=== PATIENT | female | born 1940 | race Caucasian/White ===

== ENCOUNTER → 2018-05-17 11:44 | Outpatient (CLI) | payer MEDICARE ==
[~2018-05-17] VITALS: Ht 170.2 cm; Wt 88.6 kg
--- NOTE | ~2018-05-17 | HEMODYNAMI ---
PATIENT:GEOVANNA CARRINGTON MEDICAL RECORD: [id number] : 36 LOCATION:[facility] ADMISSION DATE: 05/17/18 Generatedon:05/17/201815:04 Patient name: GEOVANNA CARRINGTON Patient #: [id number] SSN: : 1940 Date of study: 05/17/2018 Page: Of Hemodynamic Procedure Report Patient Data Patient Demographics Procedure consent was obtained First Name: GEOVANNA Gender: Female Last Name: ZEB : 1940 Middle Initial: L Age: 78 year(s) Patient #: [id number] Race: Unknown Additional ID: [id number] Contact details Address: [address] [place] [address] State: [place] City: [facility] Zip code: [address] Past Medical History Allergies Allergen Reaction Date Comments Reported Other allergy 05/17/2018 DILUADID, LIPITOR, NEXIUM Admission Admission Data Admission Date: 05/17/2018 Admission Time: 11:44 Height (in.): 66 BSA: 2.01 (m2) Height (cm.): 167.64 BMI: 32.76 (kg/m2) Weight (lbs.): 203 Weight (kg.): 92.08 Lab Results Lab Result Date: 05/17/2018 Lab Result Time: 0:00 Biochemistry Name Units Result Min Max BUN mg/dl 20 --(----)*- 7 18 Creatinine mg/dl 1 --(--*-)-- 0.6 1.3 CBC Name Units Result Min Max Hemoglobin g/dl 11.1 *-(----)-- 13.5 17.5 Procedure Procedure Types Cath Procedure Diagnostic Procedure [facility] w/Coronaries Sedation Charges Moderate Sedation up to 15 minutes PCI Procedure Coronary Stent Coronary Stent Initial Procedure Description Procedure Date Procedure Date: 05/17/2018 Procedure Start Time: 14:34 Procedure End Time: 15:03 Procedure Staff Name Function Ghulam Huitron MD Performing Physician Joon Ryan RN Clinical Psychologist Private Practice Mariaa Carrera RT Monitor Andrea Stewart RT Scrub Sheyla Smith RN Nurse Ru Martinez RN Nurse Procedure Data Cath Procedure Fluoroscopy Diagnostic fluoroscopy Total fluoroscopy Time: 7.8 time: 7.8 min min Diagnostic fluoroscopy Total fluoroscopy dose: dose: 1062 mGy 1062 mGy Contrast Material Contrast Material Type Amount (ml) Isovue 300 148 Entry Location Entry Primary Successful Side Size Upsize Upsize Entry Closure Richardson ccessful Closure Location (Fr) 1 (Fr) 2 (Fr) Remarks Device Remarks Femoral Right 6 Fr Mechanical artery Short Compression Estimated blood loss: 10 ml Diagnostic catheters Device Type Used For End Catheter Placement DIAGNOSTIC [place] 110cm 5 Procedure Fr catheter ([id number]) DIAGNOSTIC AR MOD 5Fr Procedure Catheter ([id number]) DIAGNOSTIC AR2 MOD 5 Fr Procedure catheter ([id number]) Procedure Complications No complications Procedure Medications Medication Administration Route Dosage Oxygen etCO2 Nasal cannula 2 l/min Lidocaine 2% added to field 20 Heparin Flush Bag added to field 2 bags (1000units/500ml NS) 0.9% NaCl I.V. 100 ml/hr Radial Cocktail added to field 1 syringe (Verapomil 2mg/Nitro 400mcg/Heparin 1500units) Versed I.V. 2 mg Fentanyl I.V. 100 mcg Versed I.V. 1 mg Versed I.V. 1 mg Nitroglycerin IC/IA I.C. 100 mcg Heparin Bolus I.V. 9000 units Plavix P.O. 600 mg Hemodynamics Rest BSA: 2.01 (m2) HGB: 11.1 (g/dl) O2 Consumption: Estimated: 174.84 (ml/min) O2 Co nsumption indexed: Estimated:86.99 (ml/min/m) Heart Rate: 62 (bpm) Pressure Samples Time Site Value (mmHg) Purpose Heart Use Rate(bpm) 14:36 LV 125/1,11 Snapshot 66 14:37 AO 118/54(80) Pullback 69 14:37 LV 120/19,7 Pullback 69 Gradients Valve Time Site 1 Site 2 Mean SEP/DFP Peak To Heart Use (mmHg) (sec/min) Peak Rate (mmHg) (bpm) Aortic 14:37 LV AO 5 12 2 69 120/19,7 118/54(80) Calculations Valve P-P Mean Valve Index Valve Source Name Gradient Area Flow (cm2) Aortic 2 5 2 5 Snapshots Pre Cath Intra NCS Post Cath Vital Signs Time Heart Resp SPO2 etCO2 NIBP (mmHg) Rhythm Pain Sedation Rate (ipm) (%) (mmHg) Status Level (bpm) 14:18:40 61 21 97 39 163/75(127) NSR 0 (11) 10(A) , No pain 14:23:14 62 17 100 35.6 161/72(140) NSR 0 (11) 10(A) , No pain 14:27:45 60 11 99 35.6 142/66(110) NSR 0 (11) 10(A) , No pain 14:32:03 58 16 97 27.3 128/58(104) NSR 0 (11) 9(A) , No pain 14:36:25 65 12 98 37.1 123/59(86) NSR 0 (11) 9(A) , No pain 14:41:37 69 18 98 38.6 129/68(101) NSR 0 (11) 9(A) , No pain 14:45:58 69 15 98 37.1 142/68(117) NSR 0 (11) 10(A) , No pain 14:50:04 64 14 98 37.1 135/67(112) NSR 0 (11) 9(A) , No pain 14:54:31 69 13 99 39.4 139/66(111) NSR 0 (11) 10(A) , No pain 14:58:57 72 15 99 37.9 146/69(114) NSR 0 (11) 10(A) , No pain 15:03:23 67 13 99 37.9 158/77(132) NSR 0 (11) 10(A) , No pain Medications Time Medication Route Dose Verified Delivered Reason Not es Effectiveness by by 14:21:30 Oxygen etCO2 2 l/min Ghulam Sheyla used for Nasal Tomy Smith procedure cannula RN 14:21:41 Lidocaine 2% added 20ml Ghulam Ghulam for local to vial Tomy Huitron MD anesthetic field 14:21:47 Heparin Flush added 2 bags Ghulam Ghulam used for Bag to Tomy Huitron MD procedure (1000units/500ml field NS) 14:21:58 0.9% NaCl I.V. 100 Ghulam Sheyla Per physician ml/hr Tomy Smith RN 14:29:16 Versed I.V. 2 mg Ghulam Sheyla for sedation Tomy Smith RN 14:29:23 Fentanyl I.V. 100 mcg Ghulam Sheyla for sedation Tomy Smith RN 14:34:53 Radial Cocktail added 1 Ghulam Ghulam used for (Verapomil to syringe Tomy Huitron MD procedure 2mg/Nitro field 400mcg/Heparin 1500units) 14:35:09 Versed I.V. 1 mg Ghulam Sheyla for sedation Tomy Smith RN 14:46:28 Versed I.V. 1 mg Ghulam Sheyla for sedation Tomy Smith RN 14:50:00 Nitroglycerin I.C. 100 mcg Ghulam Ghulam for IC/IA Tomy molina 14:50:12 Heparin Bolus I.V. 9000 Ghulam Sheyla for rupert ified units Tomy Smith anticoagulation with dr KORIN huitron. 14:59:39 Plavix P.O. 600 mg Ghulam Sheyla for Tomy Smith antiplatelet RN therapy Procedure Log Time Note 14:05:08 Joon Ryan RN sent for patient. Start room use. 14:10:19 Time tracking: Regular hours (M-F 7:00 - 5:00) 14:10:22 Plan of Care:Hemodynamics will remain stable., Cardiac rhythm will remain stable., Comfort level will be maintained., Respiratory function will remain adequate., Patient/ family verbilizes understanding of procedure., Procedure tolerated without complication., Recovers from procedure without complications.. 14:10:24 Signed procedure consent form obtained from patient. 14:10:30 H&P Date Dictated: 05/10/2018 Within 30 days and on chart., H&P Addendum completed by physician on day of procedure. (MUST COMPLETE FOR ALL OUTPATIENTS). 14:10:39 Patient Height : 66 inches 14:10:43 Patient Weight : 203 lbs 14:12:10 Patient received from Pre/Post Procedure Room to CCL 1 Alert and oriented. Tansferred to table in Supine position. 14:12:12 Warm blankets applied, and leah hugger turned on for patient comfort. 14:12:12 Correct patient and procedure confirmed by team. 14:12:13 ECG and BP/O2 sat monitors applied to patient. 14:17:17 Vital chart was started 14:21:30 Oxygen 2 l/min etCO2 Nasal cannula was administered by Sheyla Smith RN; used for procedure; 14::41 Lidocaine 2% 20ml vial added to field was administered by Ghulam Huitron MD; for local anesthetic; 14:21:47 Heparin Flush Bag (1000units/500ml NS) 2 bags added to field was administered by Ghulam Huitron MD; used for procedure; 14::58 0.9% NaCl 100 ml/hr I.V. was administered by Sheyla Smith RN; Per physician; 14:22:41 Baseline sample Acquired. 14:22:48 Rhythm: sinus rhythm 14:22:49 Full Disclosure recording started 14:22:50 Pre-procedure instructions explained to patient. 14:22:50 Pre-op teaching completed and patient verbalized understanding. 14:22:52 Family in patients room. 14:22:55 Patient NPO since Midnight. 14:23:14 Patient allergic to Other allergyDILUADID, LIPITOR, NEXIUM 14:23:16 Is patient on blood thinner?Yes 14:23:42 PRADAXA HELD SINCE . 14:23:47 Patient diabetic? No. 14:23:52 Patient not . Patient is over age 55. 14:23:56 Previous problem with sedation/anesthesia? No ? 14:23:58 Snore? Yes 14:23:59 Sleep apnea? No 14:24:00 Deviated septum? No 14:24:01 Opens mouth fully? Yes 14:24:02 Sticks out tongue? Yes 14:24:04 Airway obstruction? No ? 14:24:09 Dentures? Yes TIGHT 14:24:22 Modified Stephon's test Ulnar < 7 seconds 14:24:24 Patient pain scale 0/10 ?. 14:24:28 IV patent on arrival in left hand with 0.9% NaCl at [facility]. 14:26:19 Lab Result : Creatinine 1 mg/dl 14::19 Lab Result : BUN 20 mg/dl 14:26:19 Lab Result : Hemoglobin 11.1 g/dl 14:26:23 Lab results completed and on chart. 14:26:26 Right Radial & Right Groin area was prepped with chlora-prep and draped in sterile fashion 14:26:27 Alarms reviewed by Сергей. N. 14:26:28 Sharps counted by scrub and verified by R.N. 14:26:31 Use device set Radial Dx or PCI 14:26:32 ACIST Syringe (38958) opened to sterile field. 14:26:33 Bag Decanter (2002S) opened to sterile field. 14:26:35 ACIST Hand Control (37065) opened to sterile field. 14:26:35 ACIST Manifold (48082) opened to sterile field. 14:26:36 Tegaderm 4 x 4 (1626W) opened to sterile field. 14:26:37 Medline Cath Pack ([id number]) opened to sterile field. 14:26:37 DIAGNOSTIC WIRE .035 260cm J wire (717375) opened to sterile field. 14:26:38 MBrace Wrist Support ([id number]) opened to sterile field. 14:26:40 SHEATH 6Fr Prelude Radial ([id number]) opened to sterile field. 14:28:45 --------ALL STOP TIME OUT------ 14:28:45 Final Timeout: patient, procedure, and site verified with staff and physician. All members of the team are in agreement. 14:28:47 Right Radial & Right Groin site verified by team. 14:28:50 Physical assessment completed. ASA score P 2 - A patient with mild systemic disease as per Ghulam Huitron MD. 14::53 Sedation plan: IV Moderate Sedation Medication:Versed, Fentanyl 14:29:16 Versed 2 mg I.V. was administered by Sheyla Smith RN; for sedation; 14::23 Fentanyl 100 mcg I.V. was administered by Sheyla Smith RN; for sedation; 14:30:40 Zero performed for pressure channel P1 14:32:46 Procedure started. 14:34:16 Local anesthetic to right femoral artery with Lidocaine 2% by Ghulam Huitron MD.INITIAL ACCESS ONLY 14:34:27 A 6 Fr Short sheath was inserted into the Right Femoral artery 14::53 Radial Cocktail (Verapomil 2mg/Nitro 400mcg/Heparin 1500units) 1 syringe added to field was administered by Ghulam Huitron MD; used for procedure; 14:35:09 Versed 1 mg I.V. was administered by Sheyla Smith RN; for sedation; 14:35:13 A DIAGNOSTIC [place] 110cm 5 Fr catheter (209302) was advanced over the wire and used for Procedure. 14:35:59 LV gram done using HOLLEY 14:36:07 Injector settings: Ml/sec: 7, Volume: 15, 14:36:28 LV hemodynamics recorded. 14:36:41 EF : 60 % 14:38:36 LCA angiography performed. 14:39:25 Catheter exchanged over wire. 14:39:36 UNABLE TO ENGAGE RCA 14:40:36 A DIAGNOSTIC AR MOD 5Fr Catheter (033159F) was advanced over the wire and used for Procedure. 14:42:21 UNABLE TO ENGAGE RCA 14:42:23 Catheter exchanged over wire. 14:43:29 A DIAGNOSTIC AR2 MOD 5 Fr catheter ([id number]) was advanced over the wire and used for Procedure. 14:44:41 RCA angiography performed. 14:44:42 Catheter exchanged over wire. 14:44:56 TUBING High Pressure Extension Tubing (Tomy) ([id number]) opened to sterile field. 14:45:05 INFLATOR Merit BasixCompak (TL0687) opened to sterile field. 14:45:20 GUIDE 6FR XBLAD 3.5 catheter ([id number]) opened to sterile field. 14:46:05 BMW 300cm Straight [place] 2 wire (0715148) opened to sterile field. 14:46:28 Versed 1 mg I.V. was administered by Sheyla Smith RN; for sedation; 14:47:22 6 Fr XBLAD 3.5 guide catheter was inserted over the wire 14:50:00 Nitroglycerin IC/IA 100 mcg I.C. was administered by Ghulam Huitron MD; for vasodilation; 14:50:12 Heparin Bolus 9000 units I.V. was administered by Sheyla Smith RN; for anticoagulation; verified with dr huitron. 14:51:16 BMW 300 wire advanced. 14:51:58 Wire advanced across lesion. 14:56:57 Place stent Inflation Number: 1 A INTEGRITY OTW 2.75 X 18 stent ([id number]) was prepped and advanced across the Mid LAD. The stent was deployed at 15 LOUISA for 0:10 (min:sec). 14:58:11 Stent catheter was removed intact over wire. 14:58:12 Wire removed. 14:58:13 Guide catheter removed. 14:58:17 TR BAND Standard ([id number]) opened to sterile field. 14:58:48 Procedure ended.(Physican Out) 14:59:08 Contrast amount:Isovue 300 148ml. 14:59:32 Sheath removed intact; hemostasis achieved with Mechanical Compression to the Right Femoral artery. 14:59:39 Plavix 600 mg P.O. was administered by Sheyla Smith RN; for antiplatelet therapy; 14:59:54 Fluoroscopy time 07.80 minutes. 15:00:11 Fluoroscopy dose: 1062 mGy 15:00:11 Flurop Dose total: 1062 15:01:25 TR band inflated with 12cc of air. 15:01:29 Post-procedure physical assessment completed. ASA score P 2 - A patient with mild systemic disease as per Ghulam Huitrno MD. 15:01:33 Post procedure rhythm: sinus rhythm 15:01:35 Estimated blood loss: 10 ml 15:01:37 Post procedure instruction explained to patient.Patient verbalizes understanding. 15:01:37 Patient needs reinforcement of post procedure teaching. 15:03:00 Procedure type changed to Cath procedure, Diagnostic procedure, LHC, LHC w/Coronaries, Sedation Charges, Moderate Sedation up to 15 minutes, PCI procedure, Coronary Stent, Coronary Stent Initial 15:03:24 Procedure and supply charges have been captured, reviewed, submitted and are correct. 15:03:26 Procedure Complication : No complications 15:03:28 Vital chart was stopped 15:03:31 See physician's report for complete and final results. 15:03:35 Report given to Pre/Post Procedure Room. 15:03:38 Patient transfered to Pre/Post Procedure Room with Bed. 15:03:39 Procedure ended. 15:03:39 Full Disclosure recording stopped 15:03:43 End room use (Document Last) Intervention Summary Intervention Notes Time ActionType Lesion and Equipment Action# Pressure Duration Attributes Used 14:56:57 Place stent Mid LAD INTEGRITY 1 15 00:10 OTW 2.75 X 18 stent ([id number]) Device Usage Item Name Manufacture Quantity Catalog Number Hospital Part Current M inimal Lot# / Charge Number Stock Stock Serial# Code ACIST Syringe Acist 1 75774 360401 770372 103681 2 0 (43827) Medical Systems Inc Bag Decanter Microtek 1 2001S 152584 28353 195302 5 (2001S) Medical Inc. ACIST Hand Acist 1 34473 551252 112945 980947 5 Control (22596) Medical Systems Inc ACIST Manifold Acist 1 51765 172953 203281 688802 5 (15203) Medical Systems Inc Tegaderm 4 x 4 3M 1 1626W 720318 601097 243152 5 (1626W) Medline Cath Medline 1 [id number] 607633 20598 073518 5 Pack ([id number]) DIAGNOSTIC WIRE St Oscar 1 473575 881531 400891 399982 3 0 .035 260cm J wire (377364) MBrace Wrist Advanced 1 140-0250-00 977654 46521 812648 5 Support Vascular ([id number]) Dynamics SHEATH 6Fr Merit 1 [id number] 375782 844920 182841 5 Prelude Radial Medical ([id number]) DIAGNOSTIC Terumo 1 40-6319 703324 098248 088029 5 [place] 110cm 5 Fr catheter (332342) DIAGNOSTIC AR Cardinal 1 [id number] 261260 770420 965909 1 5 MOD 5Fr Health Catheter (768225X) DIAGNOSTIC AR2 Cardinal 1 [id number] 446351 881189 957919 2 0 MOD 5 Fr Health catheter (600250M) TUBING High Merit 1 [id number] 700953 81806 435941 1 0 Pressure Medical Extension Tubing (Huitron) ([id number]) INFLATOR Merit Merit 1 KL9100 319818 244698 793022 1 5 Diassess Medical (LO1414) GUIDE 6FR XBLAD Cardinal 1 [id number] 048018 144749 227081 1 0 3.5 catheter Health ([id number]) BMW 300cm [place] 1 3621462 318709 945259 519120 5 Straight Vascular [place] 2 wire (2910113) INTEGRITY OTW Medtronic 1 [id number] 074947 762383 1 [id number] 2.75 X 18 stent ([id number]) TR BAND Terumo 1 [id number] 577392 914606 978219 4 0 Standard ([id number]) Signature Audit [place] Stage Time Signature Unsigned Intra-Procedure 05/17/2018 Mariaa Carrera 3:04:42 PM RT(R) Signatures Monitor : Mariaa Carrera Signature : RT Date : Time : [address] [place] [address]
[~2018-05-17 11:44] MED LIST: COREG25 MG PO; COZAAR100 MG PO; ISOSORBIDE MONO30 M1 PO; OMEPRAZOLE40 MG PO; PLAVIX75 MG PO; PRADAXA150 MG PO; RYTHMOL SR225 MG PO; SINGULAIR10 MG PO
[2018-05-17 12:25] VITALS: BP 143/69; Ht 170.2 cm; Wt 88.6 kg
[2018-05-17 12:36] LABS: BASOPHILS 0.2 % (0-2); EOSINOPHILS 1.2 % (0-7); HEMATOCRIT 33.8 % (36.0-48.0); HEMOGLOBIN 11.1 g/dL (12-16); IMMATURE GRANULOCYTES 0.3 % (0-5); LYMPHOCYTES 16.9 % (15-50); MCH 29.9 pg (26.0-34.0); MCHC 32.8 g/dL (31.0-37.0); MCV 91.1 fL (80.0-100.0); MEAN PLATELET VOLUME 9.8 fL (7.4-10.4); MONOCYTES 5.9 % (2-11); NEUTROPHILS 75.5 % (40-80); RBC 3.71 10x6/uL (4.00-5.40); RDW 13.3 % (11.5-14.5); WBC 9.8 10x3/uL (4.8-10.8)
[2018-05-17 12:53] LABS: PLATELET COUNT 279 10x3/uL (130-400)
[2018-05-17 14:16] LABS: ANION GAP 12.6 mmol/L (8-16); CALCIUM 9.2 mg/dL (8.5-10.1); CARBON DIOXIDE 28.4 mmol/L (21.0-32.0)
== END | disposition home or self-care (01) ==
LOC: D.CATH 11:44
PROVIDERS: Internal Medicine Cardiovascular Disease
DX: I25.110 Atherosclerotic heart disease of native coronary artery with unstable angina pectoris (principal); R06.00 Dyspnea, unspecified

== ENCOUNTER 2018-09-12 11:20 | Outpatient (CLI) | payer MEDICARE ==
[~2018-09-12] VITALS: Ht 170.2 cm; Wt 88.6 kg
--- NOTE | ~2018-09-12 | HEMODYNAMI ---
PATIENT:GEOVANNA CARRINGTON MEDICAL RECORD: [id number] : 36 LOCATION:[facility] ADMISSION DATE: 09/12/18 Generatedon:09/12/201814:16 Patient name: GEOVANNA CARRINGTON Patient #: [id number] SSN: : 1940 Date of study: 09/12/2018 Page: Of Hemodynamic Procedure Report Patient Data Patient Demographics Procedure consent was obtained First Name: GEOVANNA Gender: Female Last Name: ZEB : 1940 [facility] Initial: L Age: 78 year(s) Patient #: [id number] Race: Unknown Additional ID: [id number] Contact details Address: [address] [place] [address] State: [place] City: [facility] Zip code: [address] Past Medical History Allergies Allergen Reaction Date Comments Reported Other allergy 05/17/2018 DILUADID, LIPITOR, NEXIUM Other allergy 09/12/2018 Dilaudid, Lipitor, Nexium Admission Admission Data Admission Date: 09/12/2018 Admission Time: 11:20 Height (in.): 66 BSA: 1.99 (m2) Height (cm.): 167.64 BMI: 31.96 (kg/m2) Weight (lbs.): 198 Weight (kg.): 89.81 Lab Results Lab Result Date: 09/12/2018 Lab Result Time: 0:00 Biochemistry Name Units Result Min Max BUN mg/dl 21 --(----)-* 7 18 Creatinine mg/dl 0.9 --(-*--)-- 0.6 1.3 CBC Name Units Result Min Max Hemoglobin g/dl 11.4 *-(----)-- 13.5 17.5 Procedure Procedure Types Cath Procedure Diagnostic Procedure LHC LH w/Coronaries PCI Procedure Coronary Stent Coronary Stent Initial Peripheral Cath Diagnostic Procedure Stenciling Machine Tender Peripheral Procedures Four Vessel Arteriogram Procedure Description Procedure Date Procedure Date: 09/12/2018 Procedure Start Time: 13:44 Procedure End Time: 14:13 Procedure Staff Name Function Ghulam Hsu MD Performing Physician Patience Thomason RT Monitor Ru Martinez RN Nurse Joon Ryan RN Sweet Dough Mixer Omar Arnold RT Scrub Procedure Data Cath Procedure Fluoroscopy Diagnostic fluoroscopy Total fluoroscopy Time: 6 time: 6 min min Diagnostic fluoroscopy Total fluoroscopy dose: 374 dose: 374 mGy mGy Contrast Material Contrast Material Type Amount (ml) Isovue 300 154 Entry Location Entry Primary Successful Side Size Upsize Upsize Entry Closure Succes sful Closure Location (Fr) 1 (Fr) 2 (Fr) Remarks Device Remarks Femoral Right 5 Fr 6 Fr Exoseal artery Short Estimated blood loss: 10 ml Diagnostic catheters Device Type Used For End Catheter Placement MULTIPACK JL 4.0 5Fr Procedure catheter MULTIPACK 3DRC 5Fr Procedure catheter MULTIPACK Pigtail 5 Fr Procedure catheter Procedure Complications No complications Procedure Medications Medication Administration Route Dosage Oxygen etCO2 Nasal cannula 2 l/min Lidocaine 2% added to field 20 Heparin Flush Bag added to field 2 bags (1000units/500ml NS) 0.9% NaCl I.V. 100 ml/hr Zofran I.V. 4 mg Versed I.V. 1 mg Fentanyl I.V. 50 mcg Versed I.V. 1 mg Fentanyl I.V. 50 mcg Versed I.V. 1 mg Versed I.V. 1 mg Heparin Bolus I.V. 9000 units Nitroglycerin IC/IA I.C. 100 mcg Fentanyl I.V. 50 mcg Hemodynamics Rest BSA: 1.99 (m2) HGB: 11.4 (g/dl) O2 Consumption: Estimated: 174.48 (ml/min) O2 Co nsumption indexed: Estimated:87.68 (ml/min/m) Heart Rate: 64 (bpm) Pressure Samples Time Site Value (mmHg) Purpose Heart Use Rate(bpm) 13:50 LV 129/-4,9 EDP 51 13:50 AO 130/48(82) Pullback 74 13:50 LV 135/-6,7 Pullback 74 Gradients Valve Time Site 1 Site 2 Mean SEP/DFP Peak To Heart Use (mmHg) (sec/min) Peak Rate (mmHg) (bpm) Aortic 13:50 LV AO 15 7 5 74 135/-6,7 130/48(82) Calculations Valve P-P Mean Valve Index Valve Source Name Gradient Area Flow (cm2) Aortic 5 15 5 15 Snapshots Pre Cath Intra NCS Post Cath Vital Signs Time Heart Resp SPO2 etCO2 NIBP (mmHg) Rhythm Pain Sedation Rate (ipm) (%) (mmHg) Status Level (bpm) 13:32:27 64 24 99 0 169/78(144) NSR 0 (11) 10(A) , No pain 13:37:00 65 15 99 0 169/80(114) NSR 0 (11) 10(A) , No pain 13:41:20 63 13 96 0 130/65(104) NSR 0 (11) 10(A) , No pain 13:45:42 59 10 98 0 128/65(107) NSR 0 (11) 9(A) , No pain 13:50:06 64 11 99 0.7 139/64(109) NSR 0 (11) 9(A) , No pain 13:54:28 65 12 98 0 141/63(113) NSR 0 (11) 9(A) , No pain 13:58:55 66 11 98 0.7 153/71(114) NSR 0 (11) 9(A) , No pain 14:03:21 74 15 98 0 136/64(112) NSR 0 (11) 9(A) , No pain 14:07:43 67 12 97 0 140/68(102) NSR 0 (11) 9(A) , No pain 14:12:05 68 12 98 0 149/73(115) NSR 0 (11) 10(A) , No pain Medications Time Medication Route Dose Verified Delivered Reason Notes Effectiveness by by 13:36:34 Oxygen etCO2 2 Ghulam Buffie used for Nasal l/min Tomy Martinez RN procedure cannula 13:36:41 Lidocaine 2% added 20ml Ghulam Ghulam for local to vial Tomy Hsu MD anesthetic field 13:36:46 Heparin Flush added 2 Ghulam Ghulam used for Bag to bags Tomy Hsu MD procedure (1000units/500ml field NS) 13:36:58 0.9% NaCl I.V. 100 Ghulam Buffie Per physician ml/hr Tomy Martinez RN 13:37:11 Zofran I.V. 4 mg Ghulam Buffie Per physician Tomy Martinez RN 13:40:17 Versed I.V. 1 mg Ghulam Buffie for sedation Tomy Martinez RN 13:40:23 Fentanyl I.V. 50 Ghulam Buffie for sedation mcg Tomy Martinez RN 13:45:26 Versed I.V. 1 mg Ghulam Buffie for sedation Tomy Martinez RN 13:45:29 Fentanyl I.V. 50 Ghulam Buffie for sedation mcg Tomy Martinez RN 13:50:51 Versed I.V. 1 mg Ghulam Buffie for sedation Tomy Martinez RN 13:54:45 Versed I.V. 1 mg Ghulam Buffie for sedation Tomy Martinez RN 13:58:29 Heparin Bolus I.V. 9000 Ghulam Buffie for verif ied units Tomy Martinez RN anticoagulation with dr hsu 14:04:48 Nitroglycerin I.C. 100 Ghulam Ghulam for IC/IA mcg Tomy molina 14:06:02 Fentanyl I.V. 50 Ghulam Buffie for sedation mcg Tomy Martinez RN Procedure Log Time Note 13:22:24 Patient Height : 66 inches 13:22:32 Patient Weight : 198 lbs 13:25:14 Lab Result : BUN 21 mg/dl 13:25:14 Lab Result : Hemoglobin 11.4 g/dl 13:25:14 Lab Result : Creatinine 0.9 mg/dl 13:25:46 Diagnostic Cath status Elective 13:25:47 Ghulam Hsu MD sent for patient. Start room use. 13:25:49 Time tracking: Regular hours (M-F 7:00 - 5:00) 13:25:54 Plan of Care:Hemodynamics will remain stable., Cardiac rhythm will remain stable., Comfort level will be maintained., Respiratory function will remain adequate., Patient/ family verbilizes understanding of procedure., Procedure tolerated without complication., Recovers from procedure without complications.. 13:26:11 Patient received from Pre/Post Procedure Room to CCL 3 Alert and oriented. Tansferred to table in Supine position. 13:26:18 Warm blankets applied, and leah hugger turned on for patient comfort. 13:26:18 Correct patient and procedure confirmed by team. 13:26:20 Signed procedure consent form obtained from patient. 13:26:34 H&P Date Dictated: 09/06/2018 Within 30 days and on chart., H&P Addendum completed by physician on day of procedure. (MUST COMPLETE FOR ALL OUTPATIENTS). 13:26:36 Pre-procedure instructions explained to patient. 13:26:38 Family in waiting room. 13::39 Patient NPO since Midnight. 13:27:05 Patient allergic to Other allergyDilaudid, Lipitor, Nexium 13:27:09 Is the patient allergic to Iodine/contrast media? No. 13:27:10 Was the patient premedicated? Yes 13:27:21 Is patient on blood thinner?Yes 13:27:24 ACC The patient was administered the following blood thiners within the last 24 hours: ACCPlavix 13:27:26 Patient diabetic? No. 13:27:32 Snore? Yes 13::33 Sleep apnea? No 13::37 Dentures? No ? 13:27:41 Patient pain scale 0/10 ?. 13:27:48 IV patent on arrival in left forearm with 0.9% NaCl at [facility]. 13:27:51 Lab results completed and on chart. 13:27:56 Right groin area was prepped with chlora-prep and draped in sterile fashion 13:27:58 Alarms reviewed by R. N. 13:27:59 Sharps counted by scrub and verified by R.N. 13:28:00 Physician paged 13:30:59 ECG and BP/O2 sat monitors applied to patient. 13:31:00 Vital chart was started 13:36:14 Baseline sample Acquired. 13:36:23 Rhythm: sinus rhythm 13:36:26 Full Disclosure recording started 13:36:34 Oxygen 2 l/min etCO2 Nasal cannula was administered by Ru Martinez RN; used for procedure; 13:36:41 Lidocaine 2% 20ml vial added to field was administered by Ghulam Hsu MD; for local anesthetic; 13:36:46 Heparin Flush Bag (1000units/500ml NS) 2 bags added to field was administered by Ghulam Hsu MD; used for procedure; 13:36:58 0.9% NaCl 100 ml/hr I.V. was administered by Ru Martinez RN; Per physician; 13:37:11 Zofran 4 mg I.V. was administered by Ru Martinez RN; Per physician; 13:39:31 Physician arrived 13:39:32 --------ALL STOP TIME OUT------ 13:39:33 Final Timeout: patient, procedure, and site verified with staff and physician. All members of the team are in agreement. 13:39:36 Right groin site verified by team. 13:39:42 Fire Safety Assessment: A--An alcohol-based skin anteseptic being used preoperatively., B--The operative or invasive procedure is being performed above the xiphoid process or in the oropharynx., D--An ESU, laser, or fiber-optic light is being used. 13:39:46 Physical assessment completed. ASA score P 2 - A patient with mild systemic disease as per Ghulam Hsu MD. 13:39:50 Sedation plan: IV Moderate Sedation Medication:Versed, Fentanyl 13:40:17 Versed 1 mg I.V. was administered by Ru Martinez RN; for sedation; 13:40:23 Fentanyl 50 mcg I.V. was administered by Ru Martinez RN; for sedation; 13:43:20 Use device set Femoral Dx 13:43:23 Procedure started. 13:43:36 ACIST Syringe (17596) opened to sterile field. 13:43:37 Bag Decanter (2002S) opened to sterile field. 13:43:38 Medline Cath Pack ([id number]) opened to sterile field. 13:43:39 DIAGNOSTIC WIRE .035 260cm J wire (335238) opened to sterile field. 13:43:41 ACIST Hand Control (19812) opened to sterile field. 13:43:42 ACIST Manifold (09907) opened to sterile field. 13:43:46 DIAGNOSTIC Multipack 5Fr catheter set (NT8144) opened to sterile field. 13:43:52 SHEATH 5FR Bullard (PMC651) opened to sterile field. 13:44:14 Local anesthetic to right femoral artery with Lidocaine 2% by Ghulam Hsu MD.INITIAL ACCESS ONLY 13:44:27 A 5 Fr sheath was inserted into the Right Femoral artery 13:44:31 J wire advanced. 13:45:26 Versed 1 mg I.V. was administered by Ru Martinez RN; for sedation; 13:45:29 Fentanyl 50 mcg I.V. was administered by Ru Martinez RN; for sedation; 13:45:43 A MULTIPACK JL 4.0 5Fr catheter was advanced over the wire and used for Procedure. 13:45:45 LCA angiography performed. 13:47:02 Catheter removed. 13:47:50 A MULTIPACK 3DRC 5Fr catheter was advanced over the wire and used for Procedure. 13:49:23 RCA angiography performed. 13:49:24 Catheter removed. 13:49:31 A MULTIPACK Pigtail 5 Fr catheter was advanced over the wire and used for Procedure. 13:49:49 Zero performed for pressure channel P1 13:50:19 LV gram done using HOLLEY 13:50:34 EF : 60 % 13:50:47 Catheter removed. 13:50:51 Versed 1 mg I.V. was administered by Ru Martinez RN; for sedation; 13:52:59 Right carotid angiography performed. 13:53:00 Left carotid angiography performed. 13:54:12 INFLATOR Merit BasixCompak (EO6333) opened to sterile field. 13:54:13 SHEATH 6FR Bullard (ZMX209) opened to sterile field. 13:54:14 GUIDE 6FR XBLAD 3.5 catheter ([id number]) opened to sterile field. 13:54:16 TUBING High Pressure Extension Tubing (Tomy) ([id number]) opened to sterile field. 13:54:19 BMW 300cm [place] 2 J wire ([id number]) opened to sterile field. 13:54:28 Catheter removed. 13:54:42 Proceeding to intervention. 13:54:45 Versed 1 mg I.V. was administered by Ru Martinez RN; for sedation; 13:55:03 Sheath upsized to a 6 Fr Short. 13:56:21 6 Fr XBLAD3.5 guide catheter was inserted over the wire 13:56:26 BMW wire advanced. 13:58:29 Heparin Bolus 9000 units I.V. was administered by Ru Martinez RN; for anticoagulation; verified with dr hsu 14:01:30 Inflate balloon Inflation number: 1 A EUPHORA 2.5 x 20 Balloon ([id number]) was prepped and advanced across the Mid LAD, then inflated to 8 LOUISA for 0:23 (min:sec). 14:01:54 Inflation number: 2 The EUPHORA 2.5 x 20 Balloon ([id number]) was reinflated across the Mid LAD, to 10 LOUISA for 0:13 (min:sec). 14:04:42 Balloon removed over the wire. 14:04:48 Nitroglycerin IC/IA 100 mcg I.C. was administered by Ghulam Hsu MD; for vasodilation; 14:06:02 Fentanyl 50 mcg I.V. was administered by Ru Martinez RN; for sedation; 14:09:45 Place stent Inflation Number: 1 A ANTHONY OTW 2.5 x 38 stent ([id number]) was prepped and advanced across the Mid LAD1. The stent was deployed at 12 LOUISA for 0:17 (min:sec). 14:10:20 EXOSEAL 6Fr (EX600) opened to sterile field. 14:10:23 Wire removed. 14:10:24 Guide catheter removed. 14:10:35 Sheath removed intact; hemostasis achieved with Exoseal to the Right Femoral artery. 14:11:08 Procedure ended.(Physican Out) 14:11:29 Fluoroscopy time 06.00 minutes. 14:11:35 Fluoroscopy dose: 374 mGy 14:11:35 Flurop Dose total: 374 14:11:39 Contrast amount:Isovue 300 154ml. 14:11:41 Sharps counted by scrub and verified by R.N. 14:11:43 Insertion/operative site no bleeding no hematoma. 14:11:47 Post-op/insertion site Right Femoral artery dressed using a 4 x 4 and Tegaderm. 14:11:50 Post Procedure Pulses reassessed and unchanged 14:11:53 Post-procedure physical assessment completed. ASA score P 2 - A patient with mild systemic disease as per Ghulam Hsu MD. 14:11:57 Post procedure rhythm: sinus rhythm 14:12:08 Estimated blood loss: 10 ml 14:12:10 Post procedure instruction explained to patient.Patient verbalizes understanding. 14:12:30 Procedure type changed to Cath procedure, Diagnostic procedure, LHC, LHC w/Coronaries, PCI procedure, Coronary Stent, Coronary Stent Initial, Peripheral Cath Diagnostic Procedure, Stenciling Machine Tender Peripheral Procedures, Four Vessel Arteriogram 14:12:31 Procedure and supply charges have been captured, reviewed, submitted and are correct. 14:13:39 Procedure Complication : No complications 14:13:42 Vital chart was stopped 14:13:42 See physician's report for complete and final results. 14:13:44 Report given to Pre/Post Procedure Room. 14:13:49 Patient transfered to Pre/Post Procedure Room with Stretcher. 14:13:54 Procedure ended. 14:13:54 Full Disclosure recording stopped 14:14:02 End room use (Document Last) Intervention Summary Intervention Notes Time ActionType Lesion and Equipment Action# Pressure Duration Attributes Used 14:01:30 Inflate Mid LAD EUPHORA 2.5 x 1 8 00:23 balloon 20 Balloon ([id number]) 14:01:54 Reinflate Mid LAD EUPHORA 2.5 x 2 10 00:13 balloon 20 Balloon ([id number]) 14:09:45 Place stent Mid LAD1 ANTHONY OTW 2.5 1 12 00:17 x 38 stent ([id number]) Device Usage Item Name Manufacture Quantity Catalog Hospital Part Current Minim al Lot# / Number Charge Number Stock Stock Serial# Code ACIST Syringe Acist 1 48634 247513 013611 211620 20 (53399) Medical Systems Inc Bag Decanter Microtek 1 713857 12567 766665 5 () Medical Inc. Medline Cath Medline 1 [id number] 159522 74512 319228 5 Pack ([id number]) DIAGNOSTIC St Oscar 1 591222 216548 719587 308516 30 WIRE .035 260cm J wire (795854) ACIST Hand Acist 1 26366 278089 852846 729101 5 Control Medical (90769) Systems Inc ACIST Acist 1 35054 467367 944535 639940 5 Manifold Medical (27455) Systems Inc DIAGNOSTIC Cardinal 1 [id number] 087488 28133 888020 30 Multipack 5Fr Health catheter set (XM0668) SHEATH 5FR Terumo 1 UAJ363 624703 996005 875055 5 Bullard (ZZF492) MULTIPACK JL Cardinal 1 550363 5 4.0 5Fr Health catheter MULTIPACK Cardinal 1 126653 5 3DRC 5Fr Health catheter MULTIPACK Cardinal 1 755238 5 Pigtail 5 Fr Health catheter INFLATOR Merit 1 DG6300 371425 283148 717296 15 [facility] Medical BasixCompak (CW7140) SHEATH 6FR Terumo 1 HMP894 956949 820703 791678 40 Bullard (WMP541) GUIDE 6FR Cardinal 1 [id number] 385946 375196 390910 10 XBLAD 3.5 Health catheter ([id number]) TUBING High Merit 1 [id number] 560020 76041 742279 10 Pressure Medical Extension Tubing (Hsu) ([id number]) BMW 300cm [place] 1 [id number] 348773 211238 159850 5 [place] 2 J Vascular wire ([id number]) EUPHORA 2.5 x Medtronic 1 [id number] 478791 500536 633006 5 [id number] 20 Balloon ([id number]) ANTHONY OTW 2.5 Medtronic 1 [id number] 626013 87669 298135 5 [id number] x 38 stent ([id number]) EXOSEAL 6Fr Cardinal 1 EX600 088726 249030 667457 10 (EX600) Health Signature Audit [place] Stage Time Signature Unsigned Intra-Procedure 09/12/2018 Patience Thomason 2:16:50 PM RT(R) Signatures Monitor : Patience Thomason Signature : RT Date : Time : [place] [address] [place], [place] [address]
[2018-09-12] MEDS ORDERED: BETAPACE 80 MG80 MG PO (11:50)
[2018-09-12 11:57] VITALS: BP 157/65; Ht 170.2 cm; Wt 88.6 kg
[2018-09-12 12:08] LABS: BASOPHILS 0.6 % (0-2); EOSINOPHILS 4.1 % (0-7); HEMATOCRIT 34.6 % (36.0-48.0); HEMOGLOBIN 11.4 g/dL (12-16); IMMATURE GRANULOCYTES 0.2 % (0-5); LYMPHOCYTES 25.8 % (15-50); MCHC 32.9 g/dL (31.0-37.0); MCV 91.1 fL (80.0-100.0); MEAN PLATELET VOLUME 9.8 fL (7.4-10.4); MONOCYTES 8.3 % (2-11); PLATELET COUNT 283 10x3/uL (130-400); RDW 13.3 % (11.5-14.5); WBC 8.3 10x3/uL (4.8-10.8)
[2018-09-12 12:25] LABS: ANION GAP 12.8 mmol/L (8-16); CALCIUM 8.9 mg/dL (8.5-10.1); CARBON DIOXIDE 25.2 mmol/L (21.0-32.0); CREATININE - SERUM 0.9 mg/dL (0.6-1.3)
--- NOTE | 2018-09-12 14:45 | NUR ---
PATIENT RESTING, VSS ON 1L NC. FAMILY AT BEDSIDE. RIGHT GROIN DRESSING IS CDI, NO S/S OF BLEEDING OR HEMATOMA.
--- NOTE | 2018-09-12 15:15 | NUR ---
PATIENT RESTING, VSS ON 1L NC. RIGHT GROIN DRESSING IS CDI, NO S/S OF BLEEDING OR HEMATOMA.
--- NOTE | 2018-09-12 15:45 | NUR ---
PATIENT INTERMITTENTLY RESTING, VSS ON 1L NC. RIGHT GROIN DRESSING IS CDI, NO S/S OF BLEEDING OR HEMATOMA. PATIENT C/O CHRONIC PAIN IN LOWER BACK.
--- NOTE | 2018-09-12 16:15 | NUR ---
PATIENT RESTING. VSS ON ROOM AIR. RIGHT GROIN DRESSING IS CDI, NO S/S OF BLEEDING OR HEMATOMA. PATIENT STATES THAT PAIN IN BACK IS "GETTING A LITTLE BETTER".
--- NOTE | 2018-09-12 16:45 | NUR ---
HEAD OF BED ELEVATED TO 30 DEGREES, RIGHT GROIN DRESSING IS CDI, NO S/S OF BLEEDING OR HEMATOMA. VSS ON ROOM AIR. PATIENT EATING TURKEY SANDWICH. NO N/V.
--- NOTE | 2018-09-12 17:15 | NUR ---
HEAD OF BED ELEVATED TO 90 DEGREES, RIGHT GROIN DRESSING IS CDI, NO S/S OF BLEEDING OR HEMATOMA. VSS ON ROOM AIR. NO C/O PAIN, NUMBNESS, OR TINGLING.
--- NOTE | 2018-09-12 17:45 | NUR ---
RIGHT GROIN DRESSING IS CDI,NO S/S OF BLEEDING OR HEMATOMA. VSS ON ROOM AIR. IV REMOVED. DISCHARGE INSTRUCTIONS GIVEN TO PATIENT AND FAMILY INCLUDING REVIEW OF MEDICATIONS, ALL QUESTIONS ANSWERED.
--- NOTE | 2018-09-12 18:05 | NUR ---
PATIENT VOIDED WITHOUT DIFFICULTY. PATIENT TRANSPORTED VIA WHEELCHAIR TO CAR WITH FAMILY DRIVING, ALL BELONGINGS WITH PATIENT.
== END 2018-09-12 18:05 ==
LOC: D.CATH 11:20
PROVIDERS: Internal Medicine Cardiovascular Disease
DX: I25.110 Atherosclerotic heart disease of native coronary artery with unstable angina pectoris (principal); R55 Syncope and collapse; I10 Essential (primary) hypertension; I48.91 Unspecified atrial fibrillation; R42 Dizziness and giddiness; Z86.73 Personal history of transient ischemic attack (TIA), and cerebral infarction without residual deficits
CPT/HCPCS: 93458; 36222; 36225; C9600

== ENCOUNTER 2020-02-13 10:47 | Outpatient (CLI) | payer MEDICARE ==
[~2020-02-13] VITALS: Ht 167.6 cm; Wt 94.1 kg
--- NOTE | ~2020-02-13 | HEMODYNAMI ---
PATIENT:GEOVANNA CARRINGTON MEDICAL RECORD: [id number] : 36 LOCATION:[facility] ADMISSION DATE: 02/13/20 Generatedon:02/13/202014:31 Patient name: GEOVANNA CARRINGTON Patient #: [id number] SSN: : 1940 Date of study: 02/13/2020 Page: Of Hemodynamic Procedure Report Patient Data Patient Demographics First Name: GEOVANNA Gender: Female Last Name: ZEB : 1940 [facility] Initial: L Age: 79 year(s) Patient #: [id number] Race: Unknown Additional ID: [id number] Contact details Address: [address] [place] [address] State: [place] City: [facility] Zip code: [address] Past Medical History Allergies Allergen Reaction Date Comments Reported Other allergy 05/17/2018 DILUADID, LIPITOR, NEXIUM Other allergy 09/12/2018 Dilaudid, Lipitor, Nexium Other allergy 02/13/2020 Dilaudid, Lipitor, nexium Admission Admission Data Admission Date: 02/13/2020 Admission Time: 10:47 Arrival Date: 02/13/2020 Arrival Time: 0:00 Admit Source: Other Insurance Payor: Medicare [facility] #: [id number] Height (in.): 67 BSA: 2.07 (m2) Height (cm.): 170.18 BMI: 33.05 (kg/m2) Weight (lbs.): 211 Weight (kg.): 95.71 Lab Results Lab Result Date: 02/13/2020 Lab Result Time: 0:00 Biochemistry Name Units Result Min Max BUN mg/dl 25 --(----)-* 7 18 Creatinine mg/dl 1.2 --(---*)-- 0.6 1.3 CBC Name Units Result Min Max Hemoglobin g/dl 11.2 *-(----)-- 13.5 17.5 Procedure Procedure Types Cath Procedure Diagnostic Procedure Cardioversion External Procedure Description Procedure Date Procedure Date: 02/13/2020 Procedure Start Time: 14:23 Procedure End Time: 14:25 Procedure Staff Name Function Ghulam Huitron MD Performing Physician Patience Thomason RT Monitor Sheyla Smith RN Nurse Alvino Bolivar MD Additional personnel Procedure Data Cath Procedure Estimated blood loss: 0 ml Procedure Complications No complications Procedure Medications Medication Administration Route Dosage Oxygen etCO2 Nasal cannula 2 l/min Refer to Anesthesia Notes for Sedation Medications Hemodynamics Rest BSA: 2.07 (m2) HGB: 11.2 (g/dl) O2 Consumption: Estimated: 203.79 (ml/min) O2 Consumption indexed: Estimated:98.45 (ml/min/m) Heart Rate: 93 (bpm) Snapshots Pre Cath Intra NCS Post Cath Vital Signs Time Heart Resp SPO2 etCO2 NIBP (mmHg) Rhythm Pain Sedation Rate (ipm) (%) (mmHg) Status Level (bpm) 14:14:39 99 15 99 31 144/96(137) A-Fib 0 (11) 10(A) , No pain 14:19:05 98 16 96 32.8 143/94(124) A-Fib 0 (11) 10(A) , No pain 14:23:34 61 13 98 34.3 135/63(99) NSR 0 (11) 5(A) , No pain 14:28:18 74 16 98 38.1 123/67(100) NSR 0 (11) 5(A) , No pain 14:30:15 29.1 115/63(77) NSR 0 (11) 5(A) , No pain Medications Time Medication Route Dose Verified Delivered Reason Notes Effective ness by by 14:15:22 Oxygen etCO2 2 Ghulam Carrion used for Nasal l/min Tomy Smith procedure cannula RN 14:15:29 Refer to Ghulam Carrion Anesthesia Tomy Smith Notes for RN Sedation Medications Procedure Log Time Note 14:02:34 Procedure Status Elective Heart Cath (OP). 14:02:36 Patience Thomason RT(R) sent for patient. Start room use. 14:02:38 Time tracking: Regular hours (M-F 7:00 - 5:00) 14:02:44 Plan of Care:Hemodynamics will remain stable., Cardiac rhythm will remain stable., Comfort level will be maintained., Respiratory function will remain adequate., Patient/ family verbilizes understanding of procedure., Procedure tolerated without complication., Recovers from procedure without complications.. 14:12:42 Patient received from Pre/Post Procedure Room to CCL 1 Alert and oriented. Tansferred to table in Supine position. 14:12:43 Warm blankets applied, and leah hugger turned on for patient comfort. 14:12:44 Correct patient and procedure confirmed by team. 14:12:45 ECG and BP/O2 sat monitors applied to patient. 14:13:18 Vital chart was started 14:13:22 Baseline sample Acquired. 14:13:27 Full Disclosure recording started 14:13:39 H&P Date Dictated: 02/12/2020 Within 30 days and on chart., H&P Addendum completed by physician on day of procedure. (MUST COMPLETE FOR ALL OUTPATIENTS). 14:13:41 Pre-procedure instructions explained to patient. 14:15:22 Oxygen 2 l/min etCO2 Nasal cannula was administered by Sheyla Smith RN; used for procedure; Verbal order read back and verified. 14:15:23 Pre-op teaching completed and patient verbalized understanding. 14:15:26 Family in patients room. 14:15:29 Refer to Anesthesia Notes for Sedation Medications was administered by Sheyla Smith RN; ; Verbal order read back and verified. 14:15:29 Patient NPO since Breakfast. 14:16:09 Patient allergic to Other allergyDilaudid, Lipitor, nexium 14:16:17 Is the patient allergic to Iodine/contrast media? No. 14:16:21 Was the patient premedicated? No 14:16:31 Is patient on blood thinner?Yes 14:16:40 ACC The patient was administered the following blood thiners within the last 24 hours: ACCAspirin, ACCPradaxa 14:16:44 Patient diabetic? No. 14:16:52 Snore? Unknown 14:16:55 Sleep apnea? No 14:17:01 Dentures? Yes tight 14:17:09 Patient pain scale 0/10 ?. 14:17:17 IV patent on arrival in left forearm with 0.9% NaCl at O. 14:17:25 Lab results completed and on chart. 14:17:29 Alarms reviewed by R. N. 14:17:29 Sharps counted by scrub and verified by Amari 14:19:00 Arrival Date: 02/13/2020 12:00:00 AM 14:19:02 Admit Source: Other 14:19:09 Patient Height : 67 inches 14:19:17 Patient Weight : 211 lbs 14::17 Insurance Payor : Medicare 14:: Lab Result : BUN 25 mg/dl 14:: Lab Result : Hemoglobin 11.2 g/dl :: Lab Result : Creatinine 1.2 mg/dl 14:22:00 Procedure started. 14::15 Physician arrived 14::16 --------ALL STOP TIME OUT------ 14:: Final Timeout: patient, procedure, and site verified with staff and physician. All members of the team are in agreement. 14:22:29 Fire Safety Assessment: A--An alcohol-based skin anteseptic being used preoperatively., C--Open oxygen or nitrous oxide is being used., D--An ESU, laser, or fiber-optic light is being used. 14:22:34 Physical assessment completed. ASA score P 2 - A patient with mild systemic disease as per Ghulam Huitron MD. 14:22:41 Sedation plan: TIVA Medication:Propofol 14:22:45 Alvino Bolivar MD present and monitoring patient for TIVA. 14:23:08 Quick combo pads placed on patients chest and back. 14:23:12 Defibrillator synced and charged to 200 Joules. 14:23:14 Shock delivered. 14:23:18 Patient cardioverted to sinus rhythm . 14:24:01 Procedure ended.(Physican Out) 14:24:23 Post-procedure physical assessment completed. ASA score P 2 - A patient with mild systemic disease as per Ghulam Huitron MD. 14:24:26 Post procedure rhythm: sinus rhythm 14:24:29 Estimated blood loss: 0 ml 14::41 Procedure type changed to Cath procedure, Diagnostic procedure, Cardioversion External 14:24:43 Procedure and supply charges have been captured, reviewed, submitted and are correct. 14:24:51 Quick Combo opened to sterile field. 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 14:25:27 Report given to Pre/Post Procedure Room. 14:25:30 Patient transfered to Pre/Post Procedure Room with Stretcher. 14:25:33 Procedure ended. 14:25:33 Full Disclosure recording stopped 14:25:36 End room use (Document Last) Device Usage Item Manufacture Quantity Catalog Hospital Part Current Minimal Lot# / Name Number Charge Number Stock Stock [facility]# Code [email or web address] [id number] Combo Signature Audit [place] Stage Time Signature Unsigned Intra-Procedure 02/13/2020 Patience Thomason 2:30:10 PM RT(R) Intra-Procedure 02/13/2020 Sheyla Smith 2:30:28 PM RN Intra-Procedure 02/13/2020 Ghulam Huitron MD 2:30:58 PM [facility] [address] [place] [address]
[~2020-02-13 10:47] MED LIST changes: +BETAPACE 80 MG80 MG PO
[2020-02-13] MEDS ORDERED: CARDIZEM120 MG PO (11:06)
[2020-02-13] MEDS ORDERED: CATAPRES0.1 MG PO (11:07)
[2020-02-13] MEDS ORDERED: HYDROCHLOROTH12.5 M1 PO (11:07)
[2020-02-13] MEDS ORDERED: ISOSORBIDE DINI30 MG PO (11:08)
[2020-02-13] MEDS ORDERED: ECOTRIN325 MG PO (11:08)
[2020-02-13] MEDS ORDERED: CO Q-1030 MG PO (11:08)
[2020-02-13] MEDS ORDERED: OSTEO BI-FLEX1 EAC1 PO (11:09)
[2020-02-13] MEDS ORDERED: NIACIN100 MG PO (11:09)
[2020-02-13] MEDS ORDERED: CYANOCOBAL1000 MCG/4 SC (11:10)
[2020-02-13 11:22] VITALS: BP 127/84; Ht 167.6 cm; Wt 94.1 kg
[2020-02-13 11:36] LABS: HEMATOCRIT 35.4 % (36.0-48.0); HEMOGLOBIN 11.2 g/dL (12-16); LYMPHOCYTES 21.7 % (15-50); MCH 28.2 pg (26.0-34.0); MCHC 31.6 g/dL (31.0-37.0); MCV 89.2 fL (80.0-100.0); MEAN PLATELET VOLUME 9.4 fL (7.4-10.4); NEUTROPHILS 68.6 % (40-80); PLATELET COUNT 335 10x3/uL (130-400); RBC 3.97 10x6/uL (4.00-5.40); RDW 12.5 % (11.5-14.5); WBC 8.1 10x3/uL (4.8-10.8)
[2020-02-13 11:43] LABS: ANION GAP 10.8 mmol/L (8-16); CALCIUM 8.7 mg/dL (8.5-10.1); CARBON DIOXIDE 27.3 mmol/L (21.0-32.0); CREATININE - SERUM 1.2 mg/dL (0.6-1.3); POTASSIUM - SERUM 4.1 mmol/L (3.5-5.1)
[2020-02-13 11:48] LABS: INR 1.43 (0.85-1.17); PROTIME 17.3 SECONDS (11.6-15.0)
--- NOTE | 2020-02-13 14:35 | NUR ---
PT RECEIVED VIA STRETCHER FROM SALES AND MERCHANDISING REPRESENTATIVE POST CARDIOVERSION. PT AWAKE AND ALERT, DENIES PAIN OR DISCOMFORT. IV PATENT INFUSING VIA ORDERS TO L ARM. PT PLACED ON CARDIAC MONITORS, HR NSR RATE 67, BP 127/89, RR 16, SAT 95. O2 PLACED VIA NC AT 2L. SMALL RED AREA TO MIDDLE OF CHEST FROM PROCEDURE. CALL LIGHT IN REACH, DAUGHTER AT BS
--- NOTE | 2020-02-13 15:00 | NUR ---
PT AWAKE AND ALERT, DENIES PAIN OR DISCOMFORT. SANDWICH AND DRINK SERVED. VSS. CALL LIGHT IN REACH, DAUGHTER AT BS
--- NOTE | 2020-02-13 15:26 | NUR ---
DISCHARGE INSTRUCTIONS REVIEWED W PT, SHE VERBALIZED UNDERSTANDING. IV REMOVED W CATH INTACT, MONITORS REMOVED AND PT UP TO DRESS FOR DISCHARGE
--- NOTE | 2020-02-13 15:33 | NUR ---
PT DISCHARGED VIA WC TO FAMILY WAITING IN PRIVATE VEHICLE. PT HAD ALL BELONGINGS AND DISCHARGE PAPERWORK
== END 2020-02-13 15:30 | disposition home or self-care (01) ==
LOC: D.CATH 10:47
PROVIDERS: ATTEND Internal Medicine Cardiovascular Disease
DX: I48.91 Unspecified atrial fibrillation (principal); I10 Essential (primary) hypertension; E78.5 Hyperlipidemia, unspecified; I25.10 Atherosclerotic heart disease of native coronary artery without angina pectoris; Z86.73 Personal history of transient ischemic attack (TIA), and cerebral infarction without residual deficits